=== PATIENT | male | born 2000 | race Caucasian/White ===

== ENCOUNTER 2023-07-25 09:20 | Emergency (ER) | payer OTHER ==
[2023-07-25] MEDS: Lidocaine 1% 5 ML VIAL INJECT ONE (10:34)
[2023-07-25] MEDS: Lidocaine 1% 5 ML VIAL ONE (10:38)
== END 2023-07-25 11:45 ==
LOC: KA.ED 09:20
DX: S01.111A Laceration without foreign body of right eyelid and periocular area, initial encounter (principal); T15.91XA Foreign body on external eye, part unspecified, right eye, initial encounter; W22.8XXA Striking against or struck by other objects, initial encounter
CPT/HCPCS: 12011; 70450; 99284; J3490